=== PATIENT | male | born 1995 | race Caucasian/White ===

== ENCOUNTER 2022-10-02 13:45 | Emergency (ER) | payer SELFPAY ==
[~2022-10-02] VITALS: Ht 188 cm; Wt 86.2 kg
[2022-10-02] MEDS ORDERED: LIDOCAINE 1% W/EPINEPHRINE 20 ML VIAL INJ ONE (14:00)
[2022-10-02] MEDS ORDERED: TETANUS/DIPHTHERIA TOX ADULT 0.5 ML SYR IM ONE (14:30)
[2022-10-02 14:41] VITALS: BP 96/64
== END 2022-10-02 14:30 | disposition home or self-care (01) ==
LOC: ER 13:49
DX: S61.412A Laceration without foreign body of left hand, initial encounter (principal); S61.411A Laceration without foreign body of right hand, initial encounter; W45.8XXA Other foreign body or object entering through skin, initial encounter; Z23 Encounter for immunization
CPT/HCPCS: 90714; 99283